=== PATIENT | male | born 1955 ===

== ENCOUNTER → 2018-01-23 | Outpatient (CLI) | payer BC, OTHER ==
[2018-01-23 09:24] LABS: Basophils # (A) 0.1 k/uL (0-0.2); Basophils % (A) 1 %; Eosinophils # (A) 0.1 k/uL (0-0.7); Eosinophils % (A) 2 %; HGB 13.8 gm/dL (13.0-17.5); Lymphocytes % (A) 14 %; MCH 31.2 pg (25.0-35.0); MCHC 34.6 g/dL (31.0-37.0); MCV 90.3 fL (80.0-100.0); Mean Platelet Volume 6.5; Monocytes # (A) 0.3 k/uL (0-1.0); Monocytes % (A) 4 %; Neutrophils # (A) 5.8 k/uL (1.3-7.7); Neutrophils % (A) 78 %; Platelet Count 350 k/uL (150-450); RBC 4.43 m/uL (4.30-5.90); RDW 12.6 % (11.5-15.5); WBC 7.5 k/uL (3.8-10.6)
[2018-01-23 09:39] LABS: C Reactive Protein 5.2 mg/L (<10.0)
[2018-01-23 10:11] LABS: Erythrocyte Sedimentation Rate 12 mm/hr (0-15)
== END | disposition home or self-care (01) ==
LOC: LABWHC1 08:44
PROVIDERS: ATTEND Physical Medicine & Rehabilitation
DX: M54.2 Cervicalgia (principal); M47.812 Spondylosis without myelopathy or radiculopathy, cervical region; M50.321 Other cervical disc degeneration at C4-C5 level; M79.1 Myalgia
CPT/HCPCS: 36415; 82550; 85025; 85652; 86140

== ENCOUNTER → 2019-11-20 | Outpatient (CLI) | payer BC, OTHER ==
--- NOTE | 2019-11-21 07:13 | US ---
EXAMINATION TYPE: US kidneys/renal and bladder DATE OF EXAM: 11/20/2019 COMPARISON: NONE CLINICAL HISTORY: I10 Hypertension. EXAM MEASUREMENTS: Right Kidney: 10.5 X 4.7 X 5.2 cm Left Kidney: 9.6 X 5.2 X 5.7 cm Right Kidney: No hydronephrosis or masses seen Left Kidney: No hydronephrosis. Cystic area measuring 2.7 x 2.2 x 2.4 cm Bladder: wnl Bilateral Jets seen: Yes There is no evidence for hydronephrosis at this point in time. No nephrolithiasis is seen. The urin garett bladder is anechoic. Bilateral ureteral jets are seen. IMPRESSION: Left renal cyst measuring 2.7 cm. No hydronephrosis or nephrolithiasis.
== END | disposition home or self-care (01) ==
LOC: RADUSWWP 15:37
PROVIDERS: ATTEND Family Medicine
DX: N28.1 Cyst of kidney, acquired (principal); I10 Essential (primary) hypertension
CPT/HCPCS: 76770

== ENCOUNTER 2023-08-04 11:51 | Day surgery (SDC) | payer MEDICARE ==
[2023-08-04] MEDS ORDERED: SODIUM CHLORIDE 0.9% 1,000 ML IV ONE (12:01)
[2023-08-04] MEDS ORDERED: NITROGLYCERIN SL TABS 0.4 MG TAB SUBLINGUAL PRN (12:05)
[2023-08-04] MEDS ORDERED: ATORVASTATIN 80 MG TAB PO STA (12:05)
[2023-08-04] MEDS ORDERED: ASPIRIN 325 MG TAB PO STA (12:05)
[2023-08-04] MEDS ORDERED: ALPRAZolam 0.5 MG TAB PO PRN (12:05)
[2023-08-04] MEDS ORDERED: ASPIRIN 81 MG ONE (12:06)
[2023-08-04] MEDS: ALPRAZolam 0.25 MG TAB PO PRN (12:10)
[2023-08-04] MEDS ORDERED: SODIUM CHLORIDE 0.9% 1,000 ML in EMPTY BAG 1 BAG IV SCH (12:15)
[2023-08-04 12:26] LABS: Basophils % (A) 1 %; Eosinophils # (A) 0.1 k/uL (0-0.7); Eosinophils % (A) 2 %; HGB 14.2 gm/dL (13.0-17.5); Lymphocytes # (A) 1.5 k/uL (1.0-4.8); Lymphocytes % (A) 26 %; MCH 32.5 pg (25.0-35.0); MCHC 34.5 g/dL (31.0-37.0); MCV 94.1 fL (80.0-100.0); Mean Platelet Volume 7.5; Monocytes # (A) 0.3 k/uL (0-1.0); Monocytes % (A) 5 %; Neutrophils # (A) 3.7 k/uL (1.3-7.7); Neutrophils % (A) 64 %; Platelet Count 297 k/uL (150-450); RBC 4.36 m/uL (4.30-5.90); RDW 12.1 % (11.5-15.5); WBC 5.7 k/uL (3.8-10.6)
[2023-08-04 12:36] LABS: African American GFR (CKD) >90 (>60 ml/min/1.73 sqM); Anion Gap 14 mmol/L; Blood Urea Nitrogen 25 mg/dL (9-20); Calcium 9.8 mg/dL (8.4-10.2); Carbon Dioxide 21 mmol/L (22-30); Chloride 104 mmol/L (98-107); Glucose 104 mg/dL (74-99); Non-African American GFR(CKD) >90 (>60 ml/min/1.73 sqM); Potassium 4.4 mmol/L (3.5-5.1); Sodium 139 mmol/L (137-145)
[2023-08-04] MEDS ORDERED: HEPARIN SODIUM 1,000 UN/ML (10ML VL) ONE (12:41)
[2023-08-04] MEDS ORDERED: MIDAZOLAM 2 MG/2 ML VIAL IVP ONE (12:43)
[2023-08-04] MEDS ORDERED: LIDOCAINE 1% INJ 10MG/ML (20 ML MDV) SQ ONE (12:44)
[2023-08-04] MEDS ORDERED: VERAPAMIL SYRINGE (5 MG/10 ML) INTRAARTER ONE (12:47)
[2023-08-04] MEDS: HEPARIN SODIUM 1,000 UN/ML (10ML VL) IV ONE ×4 (12:50→13:52)
[2023-08-04] MEDS: MIDAZOLAM 2 MG/2 ML VIAL IVP ONE ×2 (12:52→13:19)
[2023-08-04] MEDS ORDERED: PRASUGREL 10 MG TAB ONE (12:59)
[2023-08-04] MEDS ORDERED: PRASUGREL 10 MG TAB PO ONE (13:03)
[2023-08-04] MEDS ORDERED: niCARdipine 25 MG/10 ML VIAL ONE (13:05)
[2023-08-04] MEDS: NITROGLYCERIN 1000MCG/10ML SYRINGE INTRACORON ONE ×2 (13:07→13:37)
[2023-08-04] MEDS ORDERED: MORPHINE SULFATE 4 MG/ML SYRINGE ONE (13:08)
[2023-08-04] MEDS ORDERED: IOPAMIDOL-370 100ML BTL INJ ONE ×2 (13:23→13:47)
[2023-08-04] MEDS ORDERED: MORPHINE SULFATE 4 MG/ML SYRINGE IVP ONE (13:38)
[2023-08-04] MEDS ORDERED: niCARdipine Syringe (1,000 mcg/10 mL) INTRACORON ONE (13:39)
[2023-08-04] MEDS ORDERED: MAG HYDROX/AL HYDROX/SIMETH 30 ML CUP PO PRN (13:49)
[2023-08-04] MEDS ORDERED: ATROPINE SULFATE 0.1 MG/ML 10ML SYRINGE IV PRN (13:49)
[2023-08-04] MEDS ORDERED: ZOLPIDEM 5 MG TAB PO PRN (13:49)
[2023-08-04] MEDS ORDERED: RX INFO: IV CONTRAST WAS GIVEN 1 EACH MISC MISCELLANE PRN (13:49)
[2023-08-04] MEDS ORDERED: ACETAMINOPHEN TAB 500 MG TAB PO ONE (14:43)
[2023-08-04] MEDS ORDERED: ACETAMINOPHEN TAB 325 MG TAB PO PRN (16:24)
--- NOTE | 2023-08-04 19:16 | CC ---
CARDIAC CATHETERIZATION REPORT PERFORMING PHYSICIAN: Tobias Rangel MD. PROCEDURES PERFORMED: 1. Selective right and left coronary angiogram. 2. Left heart catheterization. 3. Successful stenting of the proximal right coronary artery using 4.0 x 18 mm Xience drug-eluting stent with adjunctive use of intravascular imaging. 4. Successful stenting of the first obtuse marginal branch of the left circumflex using a 3.0 x 15 mm Xience drug-eluting stent with an excellent angiographic results. 5. Ultrasound-guided access of the right radial artery. INDICATION: Unstable angina in this 67-year-old gentleman, who is known to have CAD documented by coronary CTA and continues to be symptomatic in spite of maximized medical treatment. APPROACH: Right radial artery. COMPLICATIONS: None. LEVEL OF SEDATION: Moderate, with sedation length of 60 minutes. DESCRIPTION OF PROCEDURE: After obtaining an informed consent, the patient was brought to the cardiac labor relations representative. The right radial artery was cannulated using micropuncture technique under ultrasound guidance, the micropuncture wire passed easily. Then, I placed a 6-Bulgarian sheath at the right radial artery. After that I gave the patient 2 mg of verapamil intra-arterially and 5000 units of heparin intravenous with continuous ACT monitoring and additional heparin was given throughout the procedure. After that, I did selective right and left coronary angiogram using JR4 and JL3.5 catheters. Left heart catheterization was performed as well. After that, I did intervene on the RCA and LCX. Please see separate paragraph for that. Selective coronary angiogram: 1. The RCA is a large-caliber vessel and a dominant vessel with critical lesion involving the proximal portion, appeared to be in the range of 80% to 90%. 2. The left main has mild disease only. It bifurcates into LCX and LAD. 3. The LCX is a large caliber vessel, nondominant vessel. The proximal LCX has mild disease only and gives rise to an OM1, which has a critical lesion, appeared to be in the range of 99.9%. 4. The proximal LAD has intermediate lesion, appeared to be in the range of 50%. The mid and distal LAD appeared to have mild disease only. HEMODYNAMICS: The LVEDP was 12 mmHg with no significant gradient across the aortic valve. PCI of the RCA and LCX. Anticoagulation was initiated using heparin with continuous ACT monitoring. Subsequently, I engaged the RCA using JR 3.5 short tip. I did wire it using a run- through wire. Intravascular ultrasound was performed and showed a diameter between 3.5 to 4 mm. Predilatation was performed using 3.5 mm noncompliant balloon before I deployed 4.0 x 18 mm stent, where the stent was positioned under fluoroscopic guidance and deployed under fluoroscopic guidance. Postdilatation was performed using 4.0 noncompliant balloon with the final angiogram showing excellent angiographic results and the procedure was completed with no complication. After that, regarding the circ, initially I attempted engaging the left main using a CLS 3 guide, but the guide was not seated well and was deemed guiding into the LAD. For that reason, I changed into JL3.5 guide. I did wire the left circumflex using initially whisper and subsequently run-through wire, because the circ was extremely tortuous and unusable. Predilatation was performed using 2.5 mm balloon before I deployed 3.0 x 15 mm stent, where the stent was positioned under fluoroscopic guidance and deployed under fluoroscopic guidance. Final angiogram was performed, showed excellent angiographic results and the procedure was completed with no complications. CONCLUSION: 1. Critical 2-vessel CAD involving the proximal RCA and 1st obtuse marginal branch of the left circumflex. 2. Successful stenting of the RCA and LCX as described above. 3. Intermediate disease involving the LAD. 4. Normal left-sided filling pressure. 5. Postprocedure management. 6. Aggressive cholesterol control. 7. Risk factor modifications. 8. Follow up dual anti-platelet therapy. 9. Follow up with the patient. MMODL / IJN: [id number] /
[2023-08-04] MEDS ORDERED: ATORVASTATIN 80 MG TAB PO SCH (21:00)
[2023-08-04] MEDS: SYMBICORT 80-4.5 MCG INHALER INHALATION SCH (21:39)
[2023-08-05] MEDS: ALPRAZolam 0.25 MG TAB PO PRN (02:00)
[2023-08-05 05:12] VITALS: RESP 16
[2023-08-05] MEDS ORDERED: HEPARIN SODIUM,PORCINE 10,000 UNIT in SODIUM CHLORIDE 0.9% 1,000 ML IRRIGATION PRN (07:00)
[2023-08-05] MEDS ORDERED: HEPARIN SODIUM,PORCINE (1 ML) 2,500 UNIT in SODIUM CHLORIDE 0.9% 250 ML IRRIGATION PRN (07:00)
[2023-08-05] MEDS: SYMBICORT 80-4.5 MCG INHALER INHALATION SCH (08:10)
[2023-08-05] MEDS ORDERED: PRASUGREL 10 MG TAB PO SCH (09:00)
[2023-08-05] MEDS ORDERED: ASPIRIN 81 MG PO SCH (09:00)
[2023-08-05 09:27] LABS: Basophils % (A) 1 %; Eosinophils # (A) 0.1 k/uL (0-0.7); Eosinophils % (A) 3 %; HCT 37.4 % (39.0-53.0); HGB 12.5 gm/dL (13.0-17.5); Lymphocytes # (A) 1.1 k/uL (1.0-4.8); Lymphocytes % (A) 22 %; MCH 31.6 pg (25.0-35.0); MCHC 33.3 g/dL (31.0-37.0); MCV 94.8 fL (80.0-100.0); Monocytes # (A) 0.2 k/uL (0-1.0); Monocytes % (A) 5 %; Neutrophils # (A) 3.5 k/uL (1.3-7.7); Neutrophils % (A) 68 %; Platelet Count 250 k/uL (150-450); RBC 3.94 m/uL (4.30-5.90); RDW 12.4 % (11.5-15.5); WBC 5.1 k/uL (3.8-10.6)
[2023-08-05 09:42] LABS: African American GFR (CKD) >90 (>60 ml/min/1.73 sqM); Anion Gap 7 mmol/L; Blood Urea Nitrogen 18 mg/dL (9-20); Calcium 9.5 mg/dL (8.4-10.2); Carbon Dioxide 27 mmol/L (22-30); Chloride 105 mmol/L (98-107); Glucose 120 mg/dL (74-99); Non-African American GFR(CKD) >90 (>60 ml/min/1.73 sqM); Potassium 4.1 mmol/L (3.5-5.1); Sodium 139 mmol/L (137-145)
[2023-08-05 10:12] VITALS: BP 99/61; PULSE 59; TEMP 97.4
== END 2023-08-05 10:44 | disposition home or self-care (01) ==
LOC: CATHCVL 11:51 → 3SCARD 15:01 → CATHCVL 08-05 10:44
PROVIDERS: ATTEND Internal Medicine Interventional Cardiology
DX: I25.10 Atherosclerotic heart disease of native coronary artery without angina pectoris (principal)
CPT/HCPCS: 94640 ×2; 94760; 92978; 93458; 80048 ×2; 85025 ×2; C9600; C1769 ×3; C1887 ×3; C1894; C1725 ×3; C1753; C1874 ×2; J2250; J2270; J2001; J1644; Q9967; J2305

== ENCOUNTER 2023-09-24 13:49 | Observation (INO) | payer MEDICARE ==
[2023-09-24] MEDS ORDERED: NITROGLYCERIN OINT 1 INCH/GM PACKET TOPICAL STA (14:04)
[2023-09-24] MEDS ORDERED: ASPIRIN 81 MG PO STA (14:04)
--- NOTE | 2023-09-24 14:11 | ED ---
General Adult HPI - General Chief complaint: Shortness of Breath Stated complaint: SOB Time Seen by Provider: 09/24/23 13:59 Source: patient, RN notes reviewed, old records reviewed Mode of arrival: ambulatory Limitations: no limitations - History of Present Illness Initial comments: This is a 67-year-old male who presents to the emergency room stating over the last 2 weeks she's been having heartburn and some shortness of breath which is consistent with the pain needs. Prior to getting some stents in July. Patient states the symptoms of gotten progressively worse so he Didn't Dr. Rangel. Dr. Rangel wanted the patient admitted to be evaluated. Patient denies any heartburn right now he denies any chest pain at any time. Patient states that t he only differences between now and then is at it seems to occur even at rest now whereas before it occurred with exertion only. Patient states that he was told he has a 60% blockage of his LAD and they are just going to watch this time. Patient has no diabetes or high blood pressure but he does have high cholesterol. Patient denies smoking. Patient denies any recent fever chills or cough. - Related Data Home Medications Medication Instructions Recorded Confirmed Albuterol Inhaler [Ventolin Hfa 1 - 2 puff INHALATION Q6HR PRN 01/16/15 08/04/23 Inhaler] Budesonide/Formoterol Fumarate 2 puff INHALATION BID 01/16/15 08/04/23 [Symbicort 80-4.5 Mcg Inhaler] Previous Rx's Medication Instructions Recorded Aspirin 81 mg PO DAILY #90 tab 08/05/23 Atorvastatin [Lipitor] 80 mg PO HS #90 tab 08/05/23 Prasugrel [Effient] 10 mg PO DAILY #90 tab 08/05/23 Allergies Allergy/AdvReac Type Severity Reaction Status Date / Time No Known Allergies Allergy Verified 09/24/23 13:56 Review of Systems ROS Statement: Those systems with pertinent positive or pertinent negative responses have been documented in the HPI. ROS Other: All systems not noted in ROS Statement are negative. Past Medical History Past Medical History: Asthma, Coronary Artery Disease (CAD) Additional Past Medical History / Comment(s): EXCERCISE INDUCED ASTHMA History of Any Multi-Drug Resistant Organisms: None Reported Past Surgical History: Heart Catheterization With Stent, Orthopedic Surgery Additional Past Surgical History / Comment(s): colonoscopy. rt knee scope Past Anesthesia/Blood Transfusion Reactions: Motion Sickness, Postoperative Nausea & Vomiting (PONV) Additional Past Anesthesia/Blood Transfusion Reaction / Comment(s): STATES IZABELLA RE PONV Past Psychological History: No Psychological Hx Reported Smoking Status: Never smoker Past Alcohol Use History: None Reported Past Drug Use History: None Reported - Past Family History Mother Family Medical History: Unable to Obtain Additional Family Medical History / Comment(s): PT ADOPTED-FAMILY HX UNKNOWN Father Family Medical History: Unable to Obtain General Exam - General Exam Comments Initial Comments: GENERAL: Patient is well-developed and well-nourished. Patient is nontoxic and well- hydrated and is in no acute distress. ENT: Neck is soft and supple. No significant lymphadenopathy is noted. Oropharynx is clear. Moist mucous membranes. Neck has full range of motion without eliciting any pain. EYES: The sclera were anicteric and conjunctiva were pink and moist. Extraocular movements were intact and pupils were equal round and reactive to light. Eyelids were unremarkable. PULMONARY: Unlabored respirations. Good breath sounds bilaterally. No audible rales rhonchi or wheezing was noted. CARDIOVASCULAR: There is a regular rate and rhythm without any murmurs gallops or rubs. ABDOMEN: Soft and nontender with normal bowel sounds. No palpable organomegaly was noted. There is no palpable pulsatile mass. SKIN: Skin is clear with no lesions or rashes and otherwise unremarkable. NEUROLOGIC: Patient is alert and oriented x3. Cranial nerves II through XII are grossly intact. Motor and sensory are also intact. Normal speech, volume and content. Symmetrical smile. MUSCULOSKELETAL: Normal extremities with adequate strength and full range of motion. LYMPHATICS: No significant lymphadenopathy is noted PSYCHIATRIC: Normal psychiatric evaluation. 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 EKG shows a sinus bradycardia at 50 bpm ME interval is 211 QRS is 92 QT interval is 455 QTC is 427. Patient's EKG shows some slight ST segment elevation in the inferior leads as well as precordial leads which appears to be early repolarization and was seen on previous EKGs. Was pt. sent in by a medical professional or institution (, RONNIE, PHARMACY INFORMATICS MANAGER, urgent care, hospital, or fci...) When possible be specific @ -Dr. Rangel sent this patient in Did you speak to anyone other than the patient for history (EMS, parent, family, police, friend...)? What history was obtained from this source @ -Dr. Rangel spoke to the ER prior to the patient's arrival Did you review nursing and triage notes (agree or disagree)? Why? @ -[I reviewed and agree with nursing and triage notes] Were old charts reviewed (outside hosp., previous admission, EMS record, old EKG, old radiological studies, urgent care reports/EKG's, fci records)? Report findings @ -I reviewed prior charts prior laboratory prior catheterizations on this patient Differential Diagnosis (chest pain, altered mental status, abdominal pain women, abdominal pain men, vaginal bleeding, weakness, fever, dyspnea, syncope, headache, dizziness, GI bleed, back pain, seizure, CVA, palpatations, mental health, musculoskeletal)? @ -Differential Chest Pain: Stable Angina, Unstable Angina, STEMI, NSTEMI Aortic Dissection, Pneumothorax, Musculoskeletal, Esophageal Spasm GERD, Cholecystitis, Pancreatitis, Zoster, this is not meant to be an all-inclusive list. EKG interpreted by me (3pts min.). @ -[As above] X-rays interpreted by me (1pt min.). @ -Chest x-ray shows no acute abnormality CT interpreted by me (1pt min.). @ -[None done] U/S interpreted by me (1pt. min.). @ -[None done] What testing was considered but not performed or refused? (CT, X-rays, U/S, labs)? Why? @ -[None] What meds were considered but not given or refused? Why? @ -[None] Did you discuss the management of the patient with other professionals (professionals i.e. , RONNIE, PHARMACY INFORMATICS MANAGER, lab, RT, psych nurse, manager social work, drafter seismograph, teacher, attendance officer, machine adjuster leader case trim)? Give summary @ -I spoke with Dr. Camilo he agreed to admit the patient Was smoking cessation discussed for >3mins.? @ -[No] Was critical care preformed (if so, how long)? @ -[No] Were there social determinants of health that impacted care today? How? (Homelessness, low income, unemployed, alcoholism, drug addiction, transportation, low edu. Level, literacy, decrease access to med. care, long-term, rehab)? @ -[No] Was there de-escalation of care discussed even if they declined (Discuss DNR or withdrawal of care, Hospice)? DNR status @ -[No] What co-morbidities impacted this encounter? (DM, HTN, Smoking, COPD, CAD, Cancer, CVA, ARF, Chemo, Hep., AIDS, mental health diagnosis, sleep apnea, morbid obesity)? @ -[None] Was patient admitted / discharged? Hospital course, mention meds given and route, prescriptions, significant lab abnormalities, going to OR and other pe rtinent info. @ -Patient was given aspirin and Nitropaste emergency department. Patient's lab work came back negative. Patient was not having chest pain currently. I spoke with Dr. Camilo he agreed to admit the patient. I consulted cardiology. Undiagnosed new problem with uncertain prognosis? @ -[No] Drug Therapy requiring intensive monitoring for toxicity (Heparin, Nitro, Insulin, Cardizem)? @ -[No] Were any procedures done? @ -[No] Diagnosis/symptom? @ -Chest pain Acute, or Chronic, or Acute on Chronic? @ -Acute Uncomplicated (without systemic symptoms) or Complicated (systemic symptoms)? @ -Complicated Side effects of treatment? @ -[No] Exacerbation, Progression, or Severe Exacerbation? @ -[No] Poses a threat to life or bodily function? How? (Chest pain, [place], AK, pneumonia, PE, COPD, DKA, ARF, appy, cholecystitis, CVA, Diverticulitis, Homicidal, Suicidal, threat to staff... and all critical care pts) @ -Yes this could lead to an AK and end organ dysfunction - Lab Data Result diagrams: 09/24/23 14:31 09/24/23 14:31 Lab Results 09/24/23 09/24/23 09/24/23 Range/Units 14:31 14:31 14:31 WBC 6.7 (3.8-10.6) k/uL RBC 4.08 L (4.30-5.90) m/uL Hgb 13.3 (13.0-17.5) gm/dL Hct 38.7 L (39.0-53.0) % MCV 95.0 (80.0-100.0) fL MCH 32.6 (25.0-35.0) pg MCHC 34.3 (31.0-37.0) g/dL RDW 12.8 (11.5-15.5) % Plt Count 285 (150-450) k/uL MPV 7.1 Neutrophils % 66 % Lymphocytes % 23 % Monocytes % 6 % Eosinophils % 3 % Basophils % 0 % Neutrophils # 4.5 (1.3-7.7) k/uL Lymphocytes # 1.5 (1.0-4.8) k/uL Monocytes # 0.4 (0-1.0) k/uL Eosinophils # 0.2 (0-0.7) k/uL Basophils # 0.0 (0-0.2) k/uL PT 10.2 (10.0-12.5) sec INR 0.9 (<1.2) APTT 19.9 L (22.0-30.0) sec Sodium 138 (137-145) mmol/L Potassium 4.3 (3.5-5.1) mmol/L Chloride 105 (98-107) mmol/L Carbon Dioxide 22 (22-30) mmol/L Anion Gap 11 mmol/L BUN 21 H (9-20) mg/dL Creatinine 0.87 (0.66-1.25) mg/dL Est GFR (CKD-EPI)AfAm >90 (>60 ml/min/1.73 sqM) Est GFR (CKD-EPI)NonAf >90 (>60 ml/min/1.73 sqM) Glucose 100 H (74-99) mg/dL Calcium 9.2 (8.4-10.2) mg/dL Magnesium 1.8 (1.6-2.3) mg/dL Total Bilirubin 0.5 (0.2-1.3) mg/dL AST 24 (17-59) U/L ALT 29 (4-49) U/L Alkaline Phosphatase 62 (38-126) U/L Troponin I (0.000-0.034) ng/mL NT-Pro-B Natriuret Pep 191 pg/mL Total Protein 6.2 L (6.3-8.2) g/dL Albumin 3.9 (3.5-5.0) g/dL 09/24/23 Range/Units 14:31 WBC (3.8-10.6) k/uL RBC (4.30-5.90) m/uL Hgb (13.0-17.5) gm/dL Hct (39.0-53.0) % MCV (80.0-100.0) fL MCH (25.0-35.0) pg MCHC (31.0-37.0) g/dL RDW (11.5-15.5) % Plt Count (150-450) k/uL MPV Neutrophils % % Lymphocytes % % Monocytes % % Eosinophils % % Basophils % % Neutrophils # (1.3-7.7) k/uL Lymphocytes # (1.0-4.8) k/uL Monocytes # (0-1.0) k/uL Eosinophils # (0-0.7) k/uL Basophils # (0-0.2) k/uL PT (10.0-12.5) sec INR (<1.2) APTT (22.0-30.0) sec Sodium (137-145) mmol/L Potassium (3.5-5.1) mmol/L Chloride (98-107) mmol/L Carbon Dioxide (22-30) mmol/L Anion Gap mmol/L BUN (9-20) mg/dL Creatinine (0.66-1.25) mg/dL Est GFR (CKD-EPI)AfAm (>60 ml/min/1.73 sqM) Est GFR (CKD-EPI)NonAf (>60 ml/min/1.73 sqM) Glucose (74-99) mg/dL Calcium (8.4-10.2) mg/dL Magnesium (1.6-2.3) mg/dL Total Bilirubin (0.2-1.3) mg/dL AST (17-59) U/L ALT (4-49) U/L Alkaline Phosphatase (38-126) U/L Troponin I <0.012 (0.000-0.034) ng/mL NT-Pro-B Natriuret Pep pg/mL Total Protein (6.3-8.2) g/dL Albumin (3.5-5.0) g/dL Disposition Clinical Impression: Chest pain Disposition: ADMITTED IP TO THIS HOSP Referrals: Donnell Camilo Jr, [Primary Care Provider] - 1-2 days Time of Disposition: 15:27
[2023-09-24 14:45] LABS: Basophils % (A) 0 %; Eosinophils # (A) 0.2 k/uL (0-0.7); Eosinophils % (A) 3 %; HCT 38.7 % (39.0-53.0); HGB 13.3 gm/dL (13.0-17.5); Lymphocytes # (A) 1.5 k/uL (1.0-4.8); Lymphocytes % (A) 23 %; MCH 32.6 pg (25.0-35.0); MCHC 34.3 g/dL (31.0-37.0); Mean Platelet Volume 7.1; Monocytes # (A) 0.4 k/uL (0-1.0); Monocytes % (A) 6 %; Neutrophils # (A) 4.5 k/uL (1.3-7.7); Neutrophils % (A) 66 %; Platelet Count 285 k/uL (150-450); RBC 4.08 m/uL (4.30-5.90); RDW 12.8 % (11.5-15.5); WBC 6.7 k/uL (3.8-10.6)
--- NOTE | 2023-09-24 14:59 | XR ---
EXAMINATION TYPE: XR chest 2V DATE OF EXAM: 09/24/2023 COMPARISON: None HISTORY: 67-year-old male with chest pain TECHNIQUE: PA and lateral views FINDINGS: The cardiomediastinal silhouette, aorta, and pulmonary vasculature are within normal limits. Lungs an d pleural spaces are clear. IMPRESSION: No acute cardiopulmonary process.
[2023-09-24 15:01] LABS: INR 0.9 (<1.2); Prothrombin Time 10.2 sec (10.0-12.5)
[2023-09-24 15:08] LABS: ALT 29 U/L (4-49); AST 24 U/L (17-59); African American GFR (CKD) >90 (>60 ml/min/1.73 sqM); Albumin 3.9 g/dL (3.5-5.0); Alkaline Phosphatase 62 U/L (38-126); Anion Gap 11 mmol/L; Blood Urea Nitrogen 21 mg/dL (9-20); Calcium 9.2 mg/dL (8.4-10.2); Carbon Dioxide 22 mmol/L (22-30); Chloride 105 mmol/L (98-107); Glucose 100 mg/dL (74-99); Magnesium 1.8 mg/dL (1.6-2.3); Non-African American GFR(CKD) >90 (>60 ml/min/1.73 sqM); Potassium 4.3 mmol/L (3.5-5.1); Sodium 138 mmol/L (137-145); Total Bilirubin 0.5 mg/dL (0.2-1.3); Total Protein 6.2 g/dL (6.3-8.2)
[2023-09-24 15:15] LABS: NT-Pro-B-Type Natriuretic Pept 191 pg/mL
[2023-09-24 15:17] LABS: Partial Thromboplastin Time 19.9 sec (22.0-30.0)
[2023-09-24] MEDS ORDERED: NITROGLYCERIN SL TABS 0.4 MG TAB SUBLINGUAL PRN (15:28)
[2023-09-24] MEDS: NITROGLYCERIN OINT 1 INCH/GM PACKET TOPICAL SCH (18:39)
[2023-09-24] MEDS: ACETAMINOPHEN TAB 325 MG TAB PO PRN (21:50)
[2023-09-25] MEDS: NITROGLYCERIN OINT 1 INCH/GM PACKET TOPICAL SCH ×5 (01:28→23:26)
[2023-09-25] MEDS ORDERED: HEPARIN SODIUM,PORCINE (1 ML) 2,500 UNIT in SODIUM CHLORIDE 0.9% 250 ML IRRIGATION PRN (07:00)
[2023-09-25] MEDS ORDERED: HEPARIN SODIUM,PORCINE 10,000 UNIT in SODIUM CHLORIDE 0.9% 1,000 ML IRRIGATION PRN (07:00)
[2023-09-25] MEDS ORDERED: ATORVASTATIN 80 MG TAB PO STA (08:46)
[2023-09-25] MEDS ORDERED: NITROGLYCERIN SL TABS 0.4 MG TAB SUBLINGUAL PRN (08:46)
[2023-09-25] MEDS ORDERED: ASPIRIN 325 MG TAB PO STA (08:46)
[2023-09-25] MEDS ORDERED: ALPRAZolam 0.5 MG TAB PO PRN (08:46)
[2023-09-25] MEDS ORDERED: ALPRAZolam 0.25 MG TAB PO PRN (08:46)
[2023-09-25 08:48] LABS: Chol/HDL Ratio 2.71 Ratio; LDL Cholesterol,Calculated 70.2 mg/dL (0.0-131.0); VLDL Calculation 14.88 mg/dL (5.00-40.00)
[2023-09-25] MEDS ORDERED: ASPIRIN 325 MG TAB PO SCH (09:00)
[2023-09-25 09:09] LABS: Glucose,Whole Blood 97 mg/dL (70-110)
--- NOTE | 2023-09-25 09:15 | P.CRDCN ---
History of Present Illness Consult date: 09/25/23 Consult reason: chest pain History of present illness: History of present illness: This is a 67-year-old male patient of Dr. Rangel with past medical history of coronary artery disease with prior stenting of the LCx and RCA with known intermediate disease involving the LAD, hypertension, dyslipidemia, bradycardia and history of syncope. We have been asked to evaluate the patient for chest pain. Patient was last in the office on 08/29/2023 following Cardiolite stress test which showed no evidence of ischemia. Patient presented to the emergency center with complaints of dizziness, shortness of breath, pain in his back which he does not normally have this type, heartburn that isn't going on for the past week and worsening. Does not seem to be related to exertion. He was concerned that it might be related to asthma. Patient is seen today in the observation unit. He states he is feeling fine now with no symptoms. Patient has been s tarted on nitro bid ointment, full-strength aspirin and admitted to the observation unit. Case discussed with Drs. knox and patient will be scheduled for cardiac catheterization today. EKG sinus rhythm with no acute ST-T wave changes. Chest x-ray: No acute process Troponin negative 3. CBC unremarkable. Electrolytes normal. BUN 21 creatinine 0.87. Blood sugar 100. Magnesium 1.8. Liver function tests are normal. ProBNP 191. Home cardiac medications: Aspirin 81 mg daily, atorvastatin 80 mg at bedtime, Effient 10 mg at bedtime Cardiac catheterization performed on 08/04/[address] Rangel revealed RCA critical lesion involving the proximal portion 80-90%. Left main had mild disease only as well as LCx. OM1 has a critical lesion of 99.9%. Proximal LAD appeared to be in the range of 50%. Patient subsequently underwent stenting of the proximal right coronary artery. Echocardiogram performed in the office on 12/05/2019 revealed normal LV size and function. Mild mitral regurgitation, mild tricuspid regurgitation. Cardiolite stress test performed in the office on 08/29/2023 revealed excellent exercise tolerance. Normal EKG in response to exercise. Normal myocardial perfusion imaging. No evidence of stress-induced ischemia. Normal left ventricular systolic function. Review Of Systems: At the time of my exam: CONSTITUTIONAL: Denies fever or chills. CARDIOVASCULAR: Denies chest pain, Denies shortness of breath, no orthopnea, PND or palpitations. RESPIRATORY: Denies cough. GASTROINTESTINAL: Denies abdominal pain, diarrhea, constipation, nausea or vomiting. MUSCULOSKELETAL: Denies myalgias. NEUROLOGIC: Denies numbness, tingling or weakness. ENDOCRINE: Denies fatigue, weight change, polydipsia or polyurina. GENITOURINARY: Denies burning, hematuria or urgency with micturation. HEMATOLOGIC: Denies history of anemia or bleeding. Physical examination: Gen: This is a 67-year-old male resting in bed in no acute distress VS: reviewed HEENT: Head is atraumatic, normocephalic. Pupils equal, round. Sclerae is anicteric. NECK: Supple. No JVD. LUNGS: Clear to auscultation. No wheezes or rhonchi. No intercostal retractions. HEART: Regular rate and rhythm. No murmur. ABDOMEN: Soft No tenderness. EXTREMITIES: No pedal edema. No calf tenderness. NEUROLOGICAL: Patient is awake, alert and oriented x3. Assessment: Chest pain, acute coronary syndrome ruled out History of coronary artery disease with recent stenting of the right coronary artery Hypertension Dyslipidemia Bradycardia History of syncope Plan: Resume patient's home cardiac medications Scheduled patient for cardiac catheterization today Further recommendations to follow based upon clinical course Thank you kindly for this consultation. Nurse practitioner note has been reviewed, I agree with documented findings and plan of care. Patient was seen and examined. Past Medical History Past Medical History: Asthma, Coronary Artery Disease (CAD) Additional Past Medical History / Comment(s): EXCERCISE INDUCED ASTHMA History of Any Multi-Drug Resistant Organisms: None Reported Past Surgical History: Heart Catheterization With Stent, Orthopedic Surgery Additional Past Surgical History / Comment(s): colonoscopy. rt knee scope Past Anesthesia/Blood Transfusion Reactions: Motion Sickness, Postoperative Nausea & Vomiting (PONV) Additional Past Anesthesia/Blood Transfusion Reaction / Comment(s): STATES S EVERE PONV Date of Last Stent Placement:: 08/04/2023 Past Psychological History: No Psychological Hx Reported Smoking Status: Former smoker Past Alcohol Use History: None Reported Past Drug Use History: None Reported - Past Family History Mother Family Medical History: Unable to Obtain Additional Family Medical History / Comment(s): PT ADOPTED-FAMILY HX UNKNOWN Father Family Medical History: Unable to Obtain Medications and Allergies Home Medications Medication Instructions Recorded Confirmed Type Albuterol Inhaler [Ventolin Hfa 1 - 2 puff INHALATION RT-Q6H PRN 01/16/15 09/24/23 History Inhaler] Atorvastatin [Lipitor] 80 mg PO HS #90 tab 08/05/23 09/24/23 Rx Aspirin 81 mg PO HS 09/24/23 09/24/23 History Budesonide/Formoterol Fumarate 2 puff INHALATION RT-BID 09/24/23 09/24/23 History [Symbicort 160-4.5 Mcg Inhaler] Prasugrel [Effient] 10 mg PO HS 09/24/23 09/24/23 History Allergies Allergy/AdvReac Type Severity Reaction Status Date / Time No Known Allergies Allergy Verified 09/24/23 16:09 Physical Exam Vitals: Vital Signs Temp Pulse Pulse Resp BP BP Pulse Ox 09/25/23 01: 98.0 F 45 L 16 122/72 98 09/24/23 19:40 98.3 F 50 L 16 110/65 97 09/24/23 16:18 45 L 18 127/82 97 09/24/23 16:05 97.4 F L 48 L 20 144/82 98 09/24/23 14:46 52 L 18 132/78 97 09/24/23 14:30 49 L 09/24/23 14:29 51 L 18 98 09/24/23 13:54 98.1 F 52 L 20 137/78 99 Intake and Output 09/24/23 09/25/23 09/25/23 22:59 06:59 14:59 Other: # Voids 1 1 Weight 86.183 kg Results 09/24/23 14:31 09/24/23 14:31 Cardiac Enzymes 09/24/23 09/24/23 09/24/23 Range/Units 14:31 14:31 17:32 AST 24 (17-59) U/L Troponin I <0.012 <0.012 (0.000-0.034) ng/mL 09/24/23 Range/Units 20:05 AST (17-59) U/L Troponin I <0.012 (0.000-0.034) ng/mL Coagulation 09/24/23 Range/Units 14:31 PT 10.2 (10.0-12.5) sec APTT 19.9 L (22.0-30.0) sec CBC 09/24/23 Range/Units 14:31 WBC 6.7 (3.8-10.6) k/uL RBC 4.08 L (4.30-5.90) m/uL Hgb 13.3 (13.0-17.5) gm/dL Hct 38.7 L (39.0-53.0) % Plt Count 285 (150-450) k/uL Comprehensive Metabolic Panel 09/24/23 Range/Units 14:31 Sodium 138 (137-145) mmol/L Potassium 4.3 (3.5-5.1) mmol/L Chloride 105 (98-107) mmol/L Carbon Dioxide 22 (22-30) mmol/L BUN 21 H (9-20) mg/dL Creatinine 0.87 (0.66-1.25) mg/dL Glucose 100 H (74-99) mg/dL Calcium 9.2 (8.4-10.2) mg/dL AST 24 (17-59) U/L ALT 29 (4-49) U/L Alkaline Phosphatase 62 (38-126) U/L Total Protein 6.2 L (6.3-8.2) g/dL Albumin 3.9 (3.5-5.0) g/dL Current Medications Generic Name Dose Route Start Last Admin Trade Name Freq PRN Reason Stop Dose Admin Acetaminophen 650 mg 09/24/23 21:34 09/24/23 21:50 Acetaminophen Tab 325 Mg Tab PO 650 mg Q6HR PRN Administration Fever and/ or Pain Aspirin 325 mg 09/25/23 09:00 Aspirin 325 Mg Tab PO DAILY SAHRA Nitroglycerin 0.4 mg 09/24/23 15:28 Nitroglycerin Sl Tabs 0.4 Mg Tab SUBLINGUAL Q5M PRN Chest Pain Nitroglycerin 1 inch 09/24/23 18:00 09/25/23 05:37 Nitroglycerin Oint 1 Inch/Gm Packet TOPICAL Not Given Q6HR SAHRA Intake and Output 09/24/23 09/25/23 09/25/23 22:59 06:59 14:59 Other: # Voids 1 1 Weight 86.183 kg 09/24/23 14:31 09/24/23 14:31
[2023-09-25] MEDS ORDERED: IV FLUID CONTINUATION 1,000 ML IV ONE (13:10)
[2023-09-25] MEDS ORDERED: fentaNYL (PF) 50 MCG/ML 2 ML AMP IVP ONE (13:12)
[2023-09-25] MEDS ORDERED: MIDAZOLAM 2 MG/2 ML VIAL IVP ONE ×2 (13:12→13:39)
[2023-09-25] MEDS ORDERED: LIDOCAINE 1% INJ 10MG/ML (20 ML MDV) SQ ONE (13:13)
[2023-09-25] MEDS ORDERED: fentaNYL (PF) 50 MCG/ML 2 ML AMP ONE (13:13)
[2023-09-25] MEDS ORDERED: VERAPAMIL SYRINGE (5 MG/10 ML) INTRAARTER ONE (13:15)
[2023-09-25] MEDS ORDERED: HEPARIN SODIUM 1,000 UN/ML (10ML VL) IV ONE (13:17)
[2023-09-25] MEDS ORDERED: IOPAMIDOL-370 100ML BTL INJ ONE ×2 (13:41→13:53)
[2023-09-25] MEDS ORDERED: NITROGLYCERIN 1000MCG/10ML SYRINGE INTRACORON ONE (13:42)
[2023-09-25] MEDS ORDERED: RX INFO: IV CONTRAST WAS GIVEN 1 EACH MISC MISCELLANE PRN (14:10)
[2023-09-25] MEDS ORDERED: SODIUM CHLORIDE 0.9% 1,000 ML IV SCH (14:15)
--- NOTE | 2023-09-25 14:18 | P.PCN ---
Date of Procedure: 09/25/23 Operative Findings: CARDIAC CATHETERIZATION AND PERCUTANEOUS CORONARY INTERVENTION PERFORMING PHYSICIAN: Tobias Rangel MD, VI PROCEDURE PERFORMED: 1. Selective right and left coronary angiogram 2. Successful stenting of proximal LAD using 4.0 x 18 mm Xience ЕЛЕНА with an excellent angiographic results 3. Adjunctive use of Doppler wire and intravascular imaging 4 Ultrasound guided access of the right radial art. INDICATION: Unstable angina in this 67-year-old gentleman was known CAD and prior stenting of the RCA and LCx COMPLICATION: None APPROACH: Right radial artery LEVEL OF SEDATION: Moderate with the sedation time off 40 minutes PROCEDURE DESCRIPTION: After obtaining an informed consent the patient was brought to the cardiac collaborating supervising physician. The right radial artery was cannulated using micropuncture technique under ultrasound guidance and the micropuncture wire passed easily then I placed a 6- Portuguese 11 cm sheath at the right radial artery. I gave the patient 2 mg of verapamil intra-arterial and 5000 use of heparin intravenous. Selective right and left coronary angiogram performed using JR4 and JL 3.5 catheters. After that I did Doppler wire measurement of the LAD and left main coronary artery and subsequently PCI of the LAD. The procedure was completed was no complication SELECTIVE CORONARY ANGIOGRAM: The right coronary artery: Large-caliber vessel and a dominant vessel. The proximal RCA stented and the stent is patent. The mid RCA and distal RCA have mild disease only. Left main: Has mild disease appeared to be in the range of 10-20% only. Documented to be nonflow limiting by Doppler wire and intravascular imaging The left circumflex: Large-caliber vessel and nondominant vessel. The LCx proximally has mild disease only. Gives rises into a large OM branch which is a stented and the stent appeared to be patent. The stent continues after that as a small to medium caliber vessel in the AV groove The left anterior descending artery: The proximal LAD has intermediate to severe lesion documented to be flow limiting by Doppler wire. The mid and distal LAD appears to have mild disease only. PCI OF THE LAD: Anticoagulation was initiated using heparin with continuous ACT monitoring. After that I decided to initially start by doing Doppler wire measurement of the LAD and doing with back across the LAD to the left main as well. Soft is going to Doppler wire and equalizing between the Doppler wire and guiding catheter I did engage the left main using JL 3.5 guiding catheter and subsequently I wire the LAD using the Doppler wire. We did initially iFR of the LAD and that came in to be at 0.70. Doing pulled back across the lesion in the LAD to assess the lesion in the left main the iFR of the left main was 0.96 which is nonflow limiting. Further clarification was performed using the intravascular imaging. I advanced the intravascular imaging catheter across the lesion in the left main and LAD where we get a diameter of the LAD about 4 mm and the LAD was slightly calcified. Then I did minimal luminal area of the left main in the narrowest area and that came in to be at 8.9 cm which is about 6 cm and at that point and you that the left main lesion was nonflow limiting. At that point I decided to pursue with intervention on the LAD. I did predilate the lesion using 3.5 mm balloon before I deployed a 4.0 x 18 mm stent where the stent was positioned under fluoroscopy guidance and deployed under 12 carl for 20 seconds. Intravascular imaging again was performed and showed that the stent was slightly not well expanded so I posterity the stent using 4.5 mm noncompliant balloon with final angiogram showing excellent angiographic results and the procedure was completed was no complication CONCLUSION: Patent stent in the RCA Patent stent in the first obtuse marginal branch Severe disease involving the proximal LAD. I did perform successful stenting of the LAD as described above [id number] disease involving the mid shaft of the left main documented to be nonflow limiting by Doppler wire and intravascular imaging POSTPROCEDURE MANAGEMENT: 1. Dual antiplatelet therapy using aspirin and Effient for 6-12 month 2. Aggressive cholesterol control 3. Follow-up with the patient
[2023-09-25] MEDS: ACETAMINOPHEN TAB 325 MG TAB PO PRN (16:21)
[2023-09-25] MEDS ORDERED: ALBUTEROL NEBULIZED 2.5 MG/3 ML INHALATION PRN (16:41)
--- NOTE | 2023-09-25 16:44 | P.HPIM ---
History of Present Illness H&P Date: 09/25/23 Chief Complaint: Chest pain This is a pleasant 67-year-old gentleman with past medical history significant for CAD, normal LV function,recent stenting of the left circumflex and RCA with intermediate proximal LAD disease in the range of 50%, on 08/04/23, recent Cardiolite stress test 08/29/2023-reported normal, hypertension, hyperlipidemia, bradycardia, syncope, exercise-induced asthma, former nicotine dependence, smoked from ages [age], and diverticulosis. Patient presented to the ER with complaints of heartburn over the last 2 weeks accompanied by worsening shortness of breath, dizziness at rest. He attributed some of the symptoms to possible acute asthma exacerbation. Notified Dr. Rangel and was instructed to proceed to the ER. EKG reported sinus bradycardia with first-degree AV block, troponins negative 3, chest x-ray reported no acute process. Hematology, coagulation, chemistry unremarkable with the exception of BUN 21, magnesium 1.8. Received aspirin, anticoagulated on heparin drip, nitroglycerin ointment initiated. Evaluated by cardiology and patient is scheduled for cardiac catheterization today. Asymptomatic this morning. Review of Systems ROS Statement: Those systems with pertinent positive or pertinent negative responses have been documented in the HPI. ROS Other: All systems not noted in ROS Statement are negative. Past Medical History Past Medical History: Asthma, Coronary Artery Disease (CAD) Additional Past Medical History / Comment(s): EXCERCISE INDUCED ASTHMA History of Any Multi-Drug Resistant Organisms: None Reported Past Surgical History: Heart Catheterization With Stent, Orthopedic Surgery Additional Past Surgical History / Comment(s): colonoscopy. rt knee scope Past Anesthesia/Blood Transfusion Reactions: Motion Sickness, Postoperative Nausea & Vomiting (PONV) Additional Past Anesthesia/Blood Transfusion Reaction / Comment(s): STATES SEVERE PONV Date of Last Stent Placement:: 08/04/2023 Past Psychological History: No Psychological Hx Reported Smoking Status: Former smoker Past Alcohol Use History: None Reported Past Drug Use History: None Reported - Past Family History Mother Family Medical History: Unable to Obtain Additional Family Medical History / Comment(s): PT ADOPTED-FAMILY HX UNKNOWN Father Family Medical History: Unable to Obtain Medications and Allergies Home Medications Medication Instructions Recorded Confirmed Type Albuterol Inhaler [Ventolin Hfa 1 - 2 puff INHALATION RT-Q6H PRN 01/16/15 09/24/23 History Inhaler] Atorvastatin [Lipitor] 80 mg PO HS #90 tab 08/05/23 09/24/23 Rx Aspirin 81 mg PO HS 09/24/23 09/24/23 History Budesonide/Formoterol Fumarate 2 puff INHALATION RT-BID 09/24/23 09/24/23 History [Symbicort 160-4.5 Mcg Inhaler] Prasugrel [Effient] 10 mg PO HS 09/24/23 09/24/23 History Allergies Allergy/AdvReac Type Severity Reaction Status Date / Time No Known Allergies Allergy Verified 09/24/23 16:09 Physical Exam Vitals: Vital Signs Temp Pulse Pulse Resp BP BP Pulse Ox 09/25/23 07:25 97.6 F 47 L 16 105/68 96 09/25/23 01:32 98.0 F 45 L 16 122/72 98 09/24/23 19:40 98.3 F 50 L 16 110/65 97 09/24/23 16:18 45 L 18 127/82 97 Intake and Output 09/25/23 09/25/23 09/25/23 06:59 14:59 22:59 Intake Total 100 Balance 100 Intake: IV 100 Other: Voiding Method Toilet Urinal # Voids 1 2 PHYSICAL EXAM: VITAL SIGNS: [As above] GENERAL: Well-developed male patient sitting up in bed, no acute distress HEENT: Normocephalic, atraumatic ,Conjunctivae normal. eyes normal. NECK: Supple, No JVD. No thyroid enlargement. No LNs CARDIOVASCULAR: S1, S2 regular.. No murmur RESPIRATION: Unlabored, Breath sounds diminished in the bases. No rhonchi or crackles. No bronchial breathing. ABDOMEN: Soft, nontender . No guarding. no masses palpable. No ascites, No hepatosplenomegaly.Bowel sounds heard. LEGS: No edema. no swelling PSYCHIATRY: Alert and oriented X3, mood and affect normal. NERVOUS SYSTEM: Cranial N 2-12 grossly normal. Moves all 4 limbs. No focal deficits. Strength and sensation grossly intact.. Skin: Warm and dry, no rash. Results CBC & Chem 7: 09/24/23 14:31 09/24/23 14:31 Assessment and Plan Assessment: Acute chest pain, acute coronary syndrome ruled out, possible USA Bradycardia CAD with recent stenting of the RCA and left circumflex Hypertension Dyslipidemia History of exercise induced asthma, stable History of syncope Prior nicotine dependence of 10 years, quit 45 years ago PONV Plan: Continue on current medication regime ,monitoring and symptomatic treatment. Evaluated by cardiology and is scheduled for cardiac catheterization today. Home medications have been resumed. PPI ordered for GI prophylaxis. Discharge planning in progress pending procedure results and cardiology clearance. The impression and plan of care has been dictated as directed. : I performed a history and examination of this patient, discussed the same with the dictator. I agree with the dictator's note ,documented as a scribe. Any additional findings or plans will be noted.
[2023-09-25] MEDS: PANTOPRAZOLE 40 MG/10 ML VIAL IVP SCH (18:06)
[2023-09-25] MEDS: SYMBICORT 160-4.5 MCG INHALER INHALATION SCH (19:48)
[2023-09-25] MEDS ORDERED: PRASUGREL 10 MG TAB PO SCH (21:00)
[2023-09-25] MEDS ORDERED: ASPIRIN 81 MG PO SCH (21:00)
[2023-09-25] MEDS ORDERED: ATORVASTATIN 80 MG TAB PO SCH (21:00)
[2023-09-26] MEDS: NITROGLYCERIN OINT 1 INCH/GM PACKET TOPICAL SCH (06:06)
[2023-09-26] MEDS: SYMBICORT 160-4.5 MCG INHALER INHALATION SCH (09:05)
[2023-09-26] MEDS: PANTOPRAZOLE 40 MG/10 ML VIAL IVP SCH (09:14)
[2023-09-26 09:39] LABS: BUN/Creat Ratio 18.09 Ratio (12.00-20.00); Blood Urea Nitrogen 19.9 mg/dL (9.0-27.0); Calcium 8.8 mg/dL (8.7-10.3); Carbon Dioxide 25.6 mmol/L (21.6-31.8); Chloride 106 mmol/L (96-109); Glucose 96 mg/dL (70-110); Potassium 4.1 mmol/L (3.5-5.5); Sodium 142 mmol/L (135-145)
[2023-09-26 09:49] VITALS: BP 113/69; PULSE 50; RESP 18; TEMP 98.2
--- NOTE | 2023-09-26 15:00 | P.PN ---
Subjective Progress Note Date: 09/26/23 Consult reason: chest pain History of present illness: History of present illness: This is a 67-year-old male patient of Dr. Rangel with past medical history of coronary artery disease with prior stenting of the LCx and RCA with known intermediate disease involving the LAD, hypertension, dyslipidemia, bradycardia and history of syncope. We have been asked to evaluate the patient for chest pain. Patient was last in the office on 08/29/2023 following Cardiolite stress test which showed no evidence of ischemia. Patient presented to the emergency center with complaints of dizziness, shortness of breath, pain in his back which he does not normally have this type, heartburn that isn't going on for the past week and worsening. Does not seem to be related to exertion. He was concerned that it might be related to asthma. Patient is seen today in the observation unit. He states he is feeling fine now with no symptoms. Patient has been started on nitro bid ointment, full-strength aspirin and admitted to the observation unit. Case discussed with Drs. knox and patient will be scheduled for cardiac catheterization today. EKG sinus rhythm with no acute ST-T wave changes. Chest x-ray: No acute process Troponin negative 3. CBC unremarkable. Electrolytes normal. BUN 21 creatinine 0.87. Blood sugar 100. Magnesium 1.8. Liver function tests are normal. ProBNP 191. Home cardiac medications: Aspirin 81 mg daily, atorvastatin 80 mg at bedtime, Effient 10 mg at bedtime Cardiac catheterization performed on 08/04/[address] Rangel revealed RCA critical lesion involving the proximal portion 80-90%. Left main had mild disease only as well as LCx. OM1 has a critical lesion of 99.9%. Proximal LAD appeared to be in the range of 50%. Patient subsequently underwent stenting of the proximal right coronary artery. Echocardiogram performed in the office on 12/05/2019 revealed normal LV size and function. Mild mitral regurgitation, mild tricuspid regurgitation. Cardiolite stress test performed in the office on 08/29/2023 revealed excellent exercise tolerance. Normal EKG in response to exercise. Normal myocardial perfusion imaging. No evidence of stress-induced ischemia. Normal left ventricular systolic function. 09/26 Yesterday, patient underwent cardiac catheterization with Dr. Rangel which revealed patent stent in the RCA, patent stent in the first obtuse marginal branch, severe disease involving the proximal LAD status post stenting of the LAD, mild to moderate disease involving the mid shaft of the left main. Patient was continued on Effient statin aspirin. Patient denies having any chest pain, no shortness of breath. He has ambulated without lightheadedness or dizziness. Physical examination: Gen: This is a 67-year-old male resting in bed in no acute distress VS: reviewed HEENT: Head is atraumatic, normocephalic. Pupils equal, round. Sclerae is anicteric. NECK: Supple. No JVD. LUNGS: Clear to auscultation. No wheezes or rhonchi. No intercostal retractions. HEART: Regular rate and rhythm. No murmur. ABDOMEN: Soft No tenderness. EXTREMITIES: No pedal edema. No calf tenderness. NEUROLOGICAL: Patient is awake, alert and oriented x3. Assessment: Chest pain, coronary artery disease status post stent in the proximal LAD History of coronary artery disease with recent stenting of the right coronary artery and first obtuse marginal Hypertension Dyslipidemia Bradycardia History of syncope Plan: Continue patient's home cardiac medications Patient is cleared from cardiology for discharge home and follow up with Dr. Rangel in one to 2 weeks. Nurse practitioner note has been reviewed, I agree with documented findings and plan of care. Patient was seen and examined. Objective - Vital Signs Vital signs: Vital Signs Temp 98.2 F 09/26/23 07:00 Pulse 50 L 09/26/23 07:00 Resp 18 09/26/23 07:00 BP 113/69 09/26/23 07:00 Pulse Ox 96 09/26/23 07:00 FiO2 Intake & Output 09/25/23 09/26/23 09/26/23 18:59 06:59 18:59 Intake Total 100 Balance 100 Intake: IV 100 Other: Voiding Method Toilet Urinal # Voids 2 2 - Labs CBC & Chem 7: 09/24/23 14:31 09/26/23 05:52
== END 2023-09-26 12:12 | disposition home or self-care (01) ==
LOC: EC 13:49 → 6NMEDSUR 15:29
PROVIDERS: ADMIT Family Medicine; ATTEND Family Medicine
DX: R07.9 Chest pain, unspecified (principal); R00.1 Bradycardia, unspecified; I25.10 Atherosclerotic heart disease of native coronary artery without angina pectoris; R55 Syncope and collapse; I10 Essential (primary) hypertension; E78.5 Hyperlipidemia, unspecified; J45.990 Exercise induced bronchospasm; E78.00 Pure hypercholesterolemia, unspecified; Z87.891 Personal history of nicotine dependence; Z95.5 Presence of coronary angioplasty implant and graft; Z79.51 Long term (current) use of inhaled steroids; Z79.02 Long term (current) use of antithrombotics/antiplatelets; Z79.82 Long term (current) use of aspirin; Z79.899 Other long term (current) drug therapy
CPT/HCPCS: 96374; 99285; 36415; 94640 ×3; 93005; 92978; 93454; 93799; 76937; 83880; 80061; 80053; 80048; 83735 ×2; 84484; 85025; 85610; 85730; 71046; G0378 ×3; C9600; C1887; C1769 ×2; C1894; C1753; C1874; C1725 ×2; J2250; J2001; J3010; J1644; C9113; Q9967; J2305

== ENCOUNTER 2023-09-29 18:12 | Emergency (ER) | payer MEDICARE ==
--- NOTE | 2023-09-29 19:06 | ED ---
Extremity Problem HPI - General Source: patient, RN notes reviewed Mode of arrival: ambulatory Limitations: no limitations <Berenice Grimaldo - Last Filed: 09/29/23 19:05> <Missael Little - Last Filed: 09/30/23 00:10> - General Chief complaint: Extremity Problem,Nontraumatic Stated complaint: right arm pain stint area Time Seen by Provider: 09/29/23 19:05 - History of Present Illness Initial comments: Patient is a 67-year-old male presented ER with chief complaint of right arm pain. Patient recently had a catheterization and has now been experiencing pain up his right arm. Patient denies any fevers, chills, night sweats. Patient was sent here by Dr. Mccoy for evaluation. (Berenice Grimaldo) 67 year old male presents to the ED with a chief complaint of right arm pain. Patient has history of recent stent placement by Dr. Mccoy on 09/25/23 via right radial artery. Since then patient notes that he has developed some swelling and pain of the area and was advised to present to the ED for further evaluation. No chest pain or shortness of breath. No other complaints. (Missael Little) - Related Data Home Medications Medication Instructions Recorded Confirmed Albuterol Inhaler [Ventolin Hfa 1 - 2 puff INHALATION RT-Q6H PRN 01/16/15 09/29/23 Inhaler] Aspirin 81 mg PO HS 09/24/23 09/29/23 Budesonide/Formoterol Fumarate 2 puff INHALATION RT-BID 09/24/23 09/29/23 [Symbicort 160-4.5 Mcg Inhaler] Prasugrel [Effient] 10 mg PO HS 09/24/23 09/29/23 Previous Rx's Medication Instructions Recorded Atorvastatin [Lipitor] 80 mg PO HS #90 tab 08/05/23 Allergies Allergy/AdvReac Type Severity Reaction Status Date / Time No Known Allergies Allergy Verified 09/29/23 18:28 Review of Systems ROS Other: All systems not noted in ROS Statement are negative. <Berenice Grimaldo - Last Filed: 09/29/23 19:05> ROS Other: All systems not noted in ROS Statement are negative. <Missael Little - Last Filed: 09/30/23 00:10> ROS Statement: Those systems with pertinent positive or pertinent negative responses have been documented in the HPI. Past Medical History Past Medical History: Asthma, Coronary Artery Disease (CAD) Additional Past Medical History / Comment(s): EXCERCISE INDUCED ASTHMA History of Any Multi-Drug Resistant Organisms: None Reported Past Surgical History: Heart Catheterization With Stent, Orthopedic Surgery Additional Past Surgical History / Comment(s): colonoscopy. rt knee scope Past Anesthesia/Blood Transfusion Reactions: Motion Sickness, Postoperative Nausea & Vomiting (PONV) Additional Past Anesthesia/Blood Transfusion Reaction / Comment(s): STATES SEVERE PONV Date of Last Stent Placement:: 08/04/2023 Past Psychological History: No Psychological Hx Reported Smoking Status: Former smoker Past Alcohol Use History: None Reported Past Drug Use History: None Reported - Past Family History Mother Family Medical History: Unable to Obtain Additional Family Medical History / Comment(s): PT ADOPTED-FAMILY HX UNKNOWN Father Family Medical History: Unable to Obtain <Berenice Grimaldo - Last Filed: 09/29/23 19:05> General Exam Limitations: no limitations <Berenice Grimaldo - Last Filed: 09/29/23 19:05> General appearance: alert, in no apparent distress Eye exam: Present: normal appearance Neck exam: Present: normal inspection Respiratory exam: Present: normal lung sounds bilaterally Cardiovascular Exam: Present: regular rate, normal rhythm Extremities exam: Present: other (ER pulses 2+. Anterior forearm does not show any warmth or erythema however does appear to be some minimal soft tissue swelling on the anterior forearm. Tender to palpation. ) Neurological exam: Present: alert, oriented X3 Skin exam: Present: warm, dry <Missael Little - Last Filed: 09/30/23 00:10> - General Exam Comments Initial Comments: Visual Physical Exam Vital signs reviewed General: Well-appearing, nontoxic, no acute distress. Head: Normocephalic, atraumatic Eyes: PERRLA, EOMI ENT: Airway patent Chest: Nonlabored breathing Skin: No visual rash, normal skin tone Neuro: Alert and oriented 3 Musculoskeletal: No gross abnormalities (Berenice Grimaldo) Course Vital Signs 09/29/23 18:23 Temperature 98.5 F Pulse Rate 53 L Respiratory 22 Rate Blood Pressure 134/76 O2 Sat by Pulse 98 Oximetry Medical Decision Making <Berenice Grimaldo - Last Filed: 09/29/23 19:05> <Missael Little - Last Filed: 09/30/23 00:10> - Medical Decision Making I performed the quick note portion of the exam. Electronically signed by Berenice Grimaldo PA-C (Berenice Grimaldo) Was pt. sent in by a medical professional or institution (RONNIE Gonzalez, [employer]IC, urgent care, hospital, or half-way...) When possible be specific @ -No Did you speak to anyone other than the patient for history (EMS, parent, family, police, friend...)? What history was obtained from this source @ -No Did you review nursing and triage notes (agree or disagree)? Why? @ -I reviewed and agree with nursing and triage notes Were old charts reviewed (outside hosp., previous admission, EMS record, old EKG, old radiological studies, urgent care reports/EKG's, half-way records)? Report findings @ -No old charts were reviewed Differential Diagnosis (chest pain, altered mental status, abdominal pain women, abdominal pain men, vaginal bleeding, weakness, fever, dyspnea, syncope, headache, dizziness, GI bleed, back pain, seizure, CVA, palpatations, mental health, musculoskeletal)? @ -Differential Musculoskeletal Muscular strain, contusion, ligament sprain, fracture, arthritis, septic arthritis, bursitis, cellulitis, muscle spasm, nerve compression, DVT, arterial occlusion, herpes zoster, electrolyte abnormality, tumor.... This is not meant to be in all inclusive list EKG interpreted by me (3pts min.). @ -None X-rays interpreted by me (1pt min.). @ -None done CT interpreted by me (1pt min.). @ -None done U/S interpreted by me (1pt. min.). @ -Ultrasound of the right upper extremity interpreted by me showing no evidence of pseudoaneurysm or other acute process. What testing was considered but not performed or refused? (CT, X-rays, U/S, labs)? Why? @ -None What meds were considered but not given or refused? Why? @ -None Did you discuss the management of the patient with other professionals (professionals i.e. RONNIE Gonzalez, [employer], lab, RT, psych nurse, addiction social worker, tunnel kiln operator, teacher, tactical deception plans officer, registered nurse hh case manager)? Give summary @ -No Was smoking cessation discussed for >3mins.? @ -No Was critical care preformed (if so, how long)? @ -No Were there social determinants of health that impacted care today? How? (Homelessness, low income, unemployed, alcoholism, drug addiction, transportation, low edu. Level, literacy, decrease access to med. care, long-term, rehab)? @ -No Was there de-escalation of care discussed even if they declined (Discuss DNR or withdrawal of care, Hospice)? DNR status @ -No What co-morbidities impacted this encounter? (DM, HTN, Smoking, COPD, CAD, Canc er, CVA, ARF, Chemo, Hep., AIDS, mental health diagnosis, sleep apnea, morbid obesity)? @ -Recent stent placement Was patient admitted / discharged? Hospital course, mention meds given and route, prescriptions, significant lab abnormalities, going to OR and other pertinent info. @ -Discharge 67-year-old male presenting to the ED with concern for pseudoaneurysm after recent stent placement on 09/25/23. Ultrasound here shows no evidence of pseudoaneurysm. At this time patient has no other complaints. No signs stable afebrile. Discharged home in stable condition. Discussed return precautions patient verbalizes agreement. Undiagnosed new problem with uncertain prognosis? @ -No Drug Therapy requiring intensive monitoring for toxicity (Heparin, Nitro, Insulin, Cardizem)? @ -No Were any procedures done? @ -No Diagnosis/symptom? @ -Right arm pain Acute, or Chronic, or Acute on Chronic? @ -Acute Uncomplicated (without systemic symptoms) or Complicated (systemic symptoms)? @ -Uncomplicated Side effects of treatment? @ -No Exacerbation, Progression, or Severe Exacerbation? @ -No Poses a threat to life or bodily function? How? (Chest pain, USA, LA, pneumonia, PE, COPD, DKA, ARF, appy, cholecystitis, CVA, Diverticulitis, Homicidal, Suicidal, threat to staff... and all critical care pts) @ -No (Missael Little) Disposition <Berenice Grimaldo - Last Filed: 09/29/23 19:05> Is patient prescribed a controlled substance at d/c from ED?: No Time of Disposition: 00:10 <Missael Little - Last Filed: 09/30/23 00:10> Clinical Impression: Right arm pain Disposition: HOME SELF-CARE Condition: Good Additional Instructions: Please return to the Emergency Department if symptoms worsen or any other concerns. Follow up with Dr. Rangel as scheduled. Referrals: Donnell Camilo Jr, DO [Primary Care Provider] - 1-2 days
[2023-09-29] MEDS ORDERED: ACETAMINOPHEN TAB 500 MG TAB PO STA (22:19)
--- NOTE | 2023-09-29 23:38 | US ---
EXAMINATION TYPE: US upper ext pseudo RT DATE OF EXAM: 09/29/2023 COMPARISON: NONE CLINICAL INDICATION: Male, 67 years old with history of pain; Right arm pain following right radial a [facility] heart cath 4 days ago Scanned right wrist radial artery at puncture site: no pseudoaneurysm seen at this time Patent right radial artery is identified. There is no suspicious vascular outpouching to suggest pseu doaneurysm. IMPRESSION: As above.
[2023-09-29] MEDS ORDERED: KETOROLAC 15 MG/ML 1 ML VIAL IM STA (23:48)
[2023-09-30 00:46] VITALS: BP 130/78; PULSE 58; RESP 18; TEMP 98
== END 2023-09-30 00:29 | disposition home or self-care (01) ==
LOC: EC 18:12
DX: M79.601 Pain in right arm (principal); J45.909 Unspecified asthma, uncomplicated; I25.10 Atherosclerotic heart disease of native coronary artery without angina pectoris; Z87.891 Personal history of nicotine dependence; Z79.82 Long term (current) use of aspirin; Z79.51 Long term (current) use of inhaled steroids; Z79.02 Long term (current) use of antithrombotics/antiplatelets
CPT/HCPCS: 93975; 96372; 99284